=== PATIENT | male | born 1995 | race Caucasian/White ===

== ENCOUNTER → 2022-06-28 02:30 | Emergency (ER) | payer SELFPAY ==
[~2022-06-28] VITALS: Ht 165.1 cm; Wt 61.2 kg
[2022-06-28 02:30] VITALS: BP 136/79
--- NOTE | 2022-06-28 02:30 | NUR ---
TO [facility] , AMBULATORY, BIB [facility] PREBOOK
--- NOTE | 2022-06-28 03:12 | NUR ---
Patient discharged with v/s stable. Written and verbal after care instructions given and explained. Patient verbalized understanding. Ambulatory with in custody. All questions addressed prior to discharge. Advised to follow up with PMD.
== END ==
LOC: MED 02:30
DX: Z02.89 Encounter for other administrative examinations (principal)
CPT/HCPCS: 99283